=== PATIENT | female | born 1995 | race Hispanic/Latino ===

== ENCOUNTER 2019-08-22 16:00 | Emergency (ER) | payer OTHER ==
[2019-08-22 16:50] LABS: BASOPHILS % (AUTO) 0.6 % (0.0-5.0); EOSINOPHILS % (AUTO) 4.6 % (0.0-8.0); HEMATOCRIT 41.6 % (36-48); LYMPHOCYTES % (AUTO) 28.2 % (21.0-51.0); MEAN CORPUSCULAR HEMOGLOBIN 28.4 pg (27.0-33.0); MEAN CORPUSCULAR HGB CONC 33.4 g/dL (32.0-36.0); MEAN CORPUSCULAR VOLUME 85.1 fL (79-99); MONOCYTES % (AUTO) 6.6 % (3.0-13.0); NEUTROPHILS % (AUTO) 59.5 % (40.0-77.0); PLATELET COUNT (AUTO) 342 K/uL (130-400); RED BLOOD CELL COUNT(AUTO) 4.89 MIL/uL (4.00-5.50); RED CELL DISTRIBUTION WIDTH 12.3 % (11.0-15.5); WHITE BLOOD COUNT (AUTO) 10.9 K/uL (4.8-10.8)
[2019-08-22 16:56] LABS: CREATININE 0.8 mg/dL (0.5-1.5); POTASSIUM 3.7 mmol/L (3.5-5.1)
[2019-08-22 17:06] LABS: ALBUMIN 3.5 g/dL (3.5-5.0); BILIRUBIN,TOTAL 0.6 mg/dL (0.2-1.0); TOTAL PROTEIN, SERUM 7.5 g/dL (6.0-8.3)
[2019-08-22 17:16] LABS: APPEARANCE,URINE Clear (CLEAR); BILIRUBIN,URINE Negative (NEGATIVE); COLOR,URINE Dark Yellow (YELLOW); GLUCOSE, URINE (UA) Negative (NEGATIVE); KETONES,URINE Trace mg/dL (NEGATIVE); LEUKOCYTE ESTERASE ,URINE Trace (NEGATIVE); NITRATE,URINE Negative (NEGATIVE); OCCULT BLOOD,URINE Negative (NEGATIVE); PROTEIN,URINE Negative (NEGATIVE)
[2019-08-22 17:23] LABS: RBC,URINE None Seen /HPF (0-1)
[2019-08-22 17:24] LABS: BACTERIA,URINE Few /HPF (None Seen); MUCUS,URINE Many LPF (None Seen)
== END 2019-08-22 18:08 | disposition home or self-care (01) ==
LOC: EDH 16:00
DX: R19.7 Diarrhea, unspecified (principal); R10.9 Unspecified abdominal pain
CPT/HCPCS: 36415; 80053; 81001; 83690; 84702; 85025

== ENCOUNTER 2024-08-10 17:11 | Emergency (ER) | payer SELFPAY ==
[~2024-08-10] VITALS: Ht 157.5 cm; Wt 84.8 kg
[2024-08-10 17:21] VITALS: BP 122/83; PULSE 72; RESP 16; TEMP 97.8
--- NOTE | 2024-08-10 17:54 | ERN ---
ED Note History of Present Illness Stated Complaint: RIGHT ARM PAIN Chief Complaint: Arm Swelling/Redness Time Seen by MD: 17:41 Time Seen by Midlevel: 17:48 Dictation: Ms. Acevedo is a 29 year old female with no reported chronic she has who presented to the emergency department this evening for evaluation of arm pain. She states that approximately one week she woke up with pain to her right forearm and hand. The pain is persistent and now includes the entirety of the right upper extremity. 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 She denies trauma/injury. She denies history of similar pain. She denies recent illness, fever, chills, shortness of breath, cough, chest pain, palpitations, edema, abdominal pain, nausea, vomiting, diarrhea, dysuria, headache, or dizziness. She states that her mother gave her a dose of Tylenol two days ago and she has taken nothing since (because it did not work). She has not yet seen a a physician for this pain. 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 EYES: Patient denies any visual symptoms. EARS, NOSE, AND THROAT: No difficulties with hearing. No symptoms of rhinitis or sore throat. CARDIOVASCULAR: Patient denies chest pains, palpitations, orthopnea and paroxysmal nocturnal dyspnea. RESPIRATORY: No dyspnea on exertion, no wheezing or cough. GI: No nausea, vomiting, diarrhea, constipation, abdominal pain, hematochezia or melena. : No urinary hesitancy or dribbling. No nocturia or urinary frequency. No abnormal urethral discharge. MUSCULOSKELETAL: Reports pain to the entirety of right upper extremity. Reports burning/numb pain and a weakened coiled coil inspector on right. NEUROLOGIC: No chronic headaches, no seizures. Patient denies numbness, tingling or weakness. PSYCHIATRIC: Patient denies problems with mood disturbance. No problems with anxiety. ENDOCRINE: No excessive urination or excessive thirst. DERMATOLOGIC: Patient denies any rashes or skin changes. Initial Vital Sign VS Vital Signs Date Time Temp Pulse Resp B/P (MAP) Pulse Ox O2 Delivery O2 Flow Rate FiO2 08/10/24 17:21 97.9 72 16 122/83 96 Room Air Physical Exam Dictation Vital signs: Reviewed. Afebrile Constitutional: No acute distress. Non-toxic appearing. Head/Face: Normocephalic, atraumatic. Eyes: Periorbital areas with no swelling, redness, or edema. Lids and lashes are normal. Conjunctival injection is absent. Sclera anicteric. Pupils equal, round, reactive to light. ENT: Pinnas intact and no signs of trauma or erythema. Ear canals clear and no discharge. TMs no erythema. No nasal discharge or bleeding noted. Oropharynx with no exudate, redness, swelling, masses, exudates, or evidence of obstruction. Uvula midline. Mucous membranes moist. Neck: Trachea midline, no masses palpated, and no cervical lymphadenopathy. No swelling. Supple, full range of motion. Chest/Axilla: No tenderness, no crepitus, no paradoxical movement, no retractions. Cardiovascular: Regular rate, regular rhythm, no murmur, no gallops. Symmetric pulses. No peripheral edema. Respiratory: Respirations even and unlabored. Lung sounds clear; no wheezes, rales or rhonchi. Room air SpO2 96% Gastrointestinal: Inspection is normal. No distention is appreciated. Bowel sounds are normal. No mass or organomegaly . There is no tenderness. No rebound. No rigidity. No voluntary or involuntary guarding. No Corbin's sign. Neurological: Normal speech, gross motor function intact, gross sensory function intact. No focal weakness/Paresthesia. Musculoskeletal/Extremities: All extremities have full range of motion. Symmetric pulses. She has good color, warmth, movement and sensation to right fingers. Capillary refills less than 3 seconds. She has full range of motion to right shoulder, elbow, wrist, and fingers. Noted coiled coil inspector left greater than right. Integumentary: Intact. Skin is normal color, warm and dry. Cap refill less than 3 seconds. Results (Laboratory/Radiology) Laboratory/Radiology Laboratory Tests Test 08/10/24 17:57 Urine HCG, Qualitative NEGATIVE (NEGATIVE) ED Course ED Course Orders Procedure Category Date Status Time ,Urine Test LAB 08/10/24 Complete 17:53 Cyclobenzaprine Hcl PHA 08/10/24 Complete (Cyclobenzaprine Hcl 18:00 Ct Cervical Spine W/O CT 08/10/24 Logged Contrast 17:53 Ketorolac PHA 08/10/24 Complete Tromethamine 30mg/Ml 18:00 Current Medications Medications (Trade) Dose Ordered Sig/Arias Route PRN Reason Start Time Stop Time Status Last Admin Dose Admin Cyclobenzaprine HCl (Cyclobenzaprine HCl) 10 mg ONCE ONCE PO 08/10/24 18:00 08/10/24 18:01 DC Ketorolac Tromethamine (toRADol) 30 mg ONCE ONCE IM 08/10/24 18:00 08/10/24 18:01 DC Vital Signs Date Time Temp Pulse Resp B/P (MAP) Pulse Ox O2 Delivery O2 Flow Rate FiO2 08/10/24 17:21 97.9 72 16 122/83 96 Room Air advised by nursing staff that patient has eloped from lobby prior to imaging or medications Medical Decision Making MDM patient eloped DX & DISP Disposition: Other(Comment) (eloped) Departure Condition: Against Medical Advice Additional Instructions: advised by nursing staff that patient eloped from ED lobby prior to imaging or medications Referrals: SELF,REFERRAL (PCP) Time of Disposition: 20:09 MAKENZIE FELDMAN NP Aug 10, 2024 17:54
[2024-08-10] MEDS ORDERED: ketOROlac 30MG VIAL (30MG/ML) IM ONE (18:00)
[2024-08-10] MEDS ORDERED: CYCLOBENZAPRINE HCL 10 MG TABLET PO ONE (18:00)
--- NOTE | 2024-08-10 19:55 | NUR ---
CALLED, NO ANSWER BY MAKENZIE Michel
--- NOTE | 2024-08-10 20:00 | NUR ---
CALLED NO ANSWER
--- NOTE | 2024-08-10 20:05 | NUR ---
PT CALLED NO ANSWEER,NOT IN LOBBY, NOT IN MAIN ER.
== END 2024-08-10 20:06 | disposition left against medical advice (07) ==
LOC: EDH 17:11
DX: M79.601 Pain in right arm (principal)
CPT/HCPCS: 81025; 99283

== ENCOUNTER 2025-04-02 09:55 | Emergency (ER) | payer SELFPAY ==
[~2025-04-02] VITALS: Ht 154.9 cm; Wt 77.1 kg
[2025-04-02 10:14] LABS: IMMATURE GRANULOCYTE ABSOLUTE 0.04 K/uL (0-1); NUCLEATED RED BLOOD CELLS 0.0 % (0.0-0.19); PLATELET COUNT (AUTO) 367 K/uL (130-400); RED BLOOD CELL COUNT(AUTO) 4.99 MIL/uL (4.00-5.50); RED CELL DISTRIBUTION WIDTH 12.1 % (11.0-15.5); WHITE BLOOD COUNT (AUTO) 9.2 K/uL (4.8-10.8)
--- NOTE | 2025-04-02 10:21 | ERN ---
General Chief Complaint: Shoulder Injury/Pain Stated Complaint: RT SHOULDER PAIN/ RADIATES TO UPPER BACK Time Seen by MD: 09:57 Source: patient History of Present Illness Initial Comments Patient is a 29-year-old female coming in with multiple complaints. Per patient she has been having right shoulder pain right trapezius muscle pain radiating to the right side of her chest. She also states that she has been feeling pressure in the epigastric and bilateral chest regions. Allergies: Coded Allergies: No Known Drug Allergies (Unverified Allergy, Unknown, 08/23/19) Past Medical History Past Medical History: No Pertinent History Past Surgical History: None Social History Social History: Negative, Lives with family ROS Dictation CONSTITUTIONAL: No chills, no fever, no weakness, no diaphoresis, no malaise. HEAD/FACE: No signs of trauma. EENT: No eye pain, no blurred vision, no tearing, no double vision, no ear pain, no ear discharge, no nose pain, no nasal congestion, no throat pain, no throat swelling, no mouth pain. RESPIRATORY: No cough, no orthopnea, no SOB, no stridor, no wheezing. CARDIOVASCULAR: chest pain, no edema, no palpitations, no syncope. GASTROINTESTINAL/ABDOMINAL: No abdominal pain, no constipation, no diarrhea, no nausea, no vomiting. GENITOURINARY: No abnormal discharge, no dysuria, no frequent urination, no hematuria. No complaints of pain in the genitals. MUSCULOSKELETAL: No back pain, no gout, no joint pain, no joint swelling, no muscle pain, no muscle stiffness, no neck pain. INTEGUMENTARY: No change in color, no change in hair/nails, no dryness, no lesion, no lumps, no rash. NEUROLOGICAL/PSYCH: No anxiety, not depressed, no emotional problem, no headache, no numbness, no pre-existing deficit, no history of seizures, no tremors, no weakness. HEMATOLOGIC/LYMPHATIC: Not anemic, no history of blood clots, no apparent bleeding, no bruising, glands not swollen. All Systems Negative, Except as Noted. Physical Exam Physical Exam Dictation VITAL SIGNS: Reviewed. GENERAL APPEARANCE: Alert, oriented x3, no acute distress, obese. HEAD AND FACE: Non-traumatic. EYES: PERRL, pink conjunctivas, eyelid no trauma, anterior chamber clear. EARS: Pinnas intact and no signs of trauma or erythema. Ear canals clear and no discharge. TMs no erythema. NOSE: No discharge, no bleeding. OROPHARYNX: Mouth normal, teeth no caries, tongue pink. Pharynx clear, no erythema. Tonsils no exudates, no abscesses noted. Mucous membrane moist. NECK: Supple, non-tender, no thyromegaly, no masses, no JVD, no bruits. BREAST: Deferred. CHEST: tenderness, no crepitus, no paradoxical movement, no retractions. Right chest region tenderness on palpation LUNGS: Clear, well-ventilated, symmetric, no rales, no wheezing, no rhonchi, no stridor, good breath sounds bilaterally. HEART: Regular rate, regular rhythm, no murmur, no gallops. VASCULAR: No peripheral edema. ABDOMEN: Soft, positive bowel sounds, nondistended, no guarding, nontender, no rebound, no masses no hepatomegaly, no splenomegaly, no Corbin's sign, no hernias. RECTAL: Deferred. GENITAL: Deferred. NEUROLOGICAL: Normal speech, gross motor function intact, gross sensory function intact. MUSCULOSKELETAL: Neck nontender, full range of motion, back nontender, full range of motion. EXTREMITIES: Nontender, full range of motion. Right trapezius muscle tenderness SKIN: Color pink, dry, no turgor, no rash, no lacerations, no abrasions, no contusions. LYMPHATICS: Deferred. Results Laboratory and Microbiology Lab and Micro Result Laboratory Tests Test 04/02/25 10:04 04/02/25 10:08 Urine Color LIGHT-YELLOW (YELLOW) Urine Appearance CLEAR (CLEAR) Urine pH 6.0 (5.0-8.0) Urine Specific [place] 1.029 (1.001-1.031) Urine Protein NEGATIVE mg/dL (NEGATIVE) Urine Glucose (UA) NEGATIVE mg/dL (NEGATIVE) Urine Ketones NEGATIVE mg/dL (NEGATIVE) Urine Occult Blood NEGATIVE (NEGATIVE) Urine Nitrate NEGATIVE (NEGATIVE) Urine Bilirubin NEGATIVE mg/dL (NEGATIVE) Urine Urobilinogen 0.2 mg/dL (0.2-1.0) Urine Leukocyte Esterase NEGATIVE [place]/uL Urine HCG, Qualitative NEGATIVE (NEGATIVE) Urine Opiates Screen NEGATIVE (NEGATIVE) Urine Barbiturates Screen NEGATIVE (NEGATIVE) Urine Phencyclidine Screen NEGATIVE (NEGATIVE) Urine Amphetamines Screen NEGATIVE (NEGATIVE) Urine Benzodiazepines Screen NEGATIVE (NEGATIVE) Urine Cocaine Screen NEGATIVE (NEGATIVE) Urine Marijuana (THC) Screen NEGATIVE (NEGATIVE) White Blood Count 9.2 K/uL (4.8-10.8) Red Blood Count 4.99 MIL/uL (4.00-5.50) Hemoglobin 14.5 g/dL (12.0-16.0) Hematocrit 43.3 % (36-48) Mean Corpuscular Volume 86.8 fL (79-99) Mean Corpuscular Hemoglobin 29.1 pg (27.0-33.0) Mean Corpuscular Hemoglobin Concent 33.5 g/dL (32.0-36.0) Red Cell Distribution Width 12.1 % (11.0-15.5) Platelet Count 367 K/uL (130-400) Mean Platelet Volume 10.5 fL (7.5-10.5) Immature Granulocyte % (Auto) 0.4 % (0-1) Neutrophils (%) (Auto) 59.0 % (40.0-77.0) Lymphocytes (%) (Auto) 25.5 % (21.0-51.0) Monocytes (%) (Auto) 6.4 % (3.0-13.0) Eosinophils (%) (Auto) 7.7 % (0.0-8.0) Basophils (%) (Auto) 1.0 % (0.0-5.0) Neutrophils # (Auto) 5.4 K/uL (1.8-7.7) Lymphocytes # (Auto) 2.3 K/uL (1.0-4.8) Monocytes # (Auto) 0.6 K/uL (0.1-1.0) Eosinophils # (Auto) 0.71 K/uL (0.00-0.70) H Basophils # (Auto) 0.09 K/uL (0.00-0.20) Absolute Immature Granulocyte (auto 0.04 K/uL (0-1) Nucleated Red Blood Cells 0.0 % (0.0-0.19) Sodium Level 136 mmol/L (136-145) Potassium Level 4.1 mmol/L (3.5-5.1) Chloride Level 101 mmol/L (101-111) Carbon Dioxide Level 28 mmol/L (21-32) Blood Urea Nitrogen 17 mg/dL (7-18) Creatinine 0.9 mg/dL (0.5-1.0) Glomerular Filtration Rate Calc 89 mL/min (>90) Random Glucose 90 mg/dL (70-105) Total Calcium 8.5 mg/dL (8.5-10.1) Total Bilirubin 0.5 mg/dL (0.2-1.0) Aspartate Amino Transf (AST/SGOT) 16 U/L (10-37) Alanine Aminotransferase (ALT/SGPT) 29 U/L (12-78) Alkaline Phosphatase 91 U/L (50-136) Total Creatine Kinase 123 U/L (21-232) Troponin I High Sensitivity 4 ng/L (4-50) Total Protein 7.2 g/dL (6.0-8.3) Albumin 3.4 g/dL (3.5-5.0) L Lipase 56 U/L (16-77) Labs Reviewed?: Yes EKG/XRAY/US/CT/MRI EKG Comment 04/02/2025 time 10:10 a.m. Ventricular rate 59 Sinus arrhythmias [place] [address] wave elevation or depression MDM MDM: Differential diagnosis: GERD, NSTEMI, STEMI, Rationale: Tests considered and ordered secondary to shared decision making include: Previous outside records reviewed: Old ER visits. Risk of complication and/or morbidity or mortality of patient management: None Medications-Per medication reconciliation Need for hospitalization: Patient does not meet criteria for hospitalization. Need for emergency major/minor surgery: No Patient is a 29-year-old female coming in complaining of chest pressure muscle strain and abdominal discomfort. Laboratory workup within normal limits. Patient received the IV Protonix states her symptoms have improved. Patient will be discharged in stable condition with a diagnosis of GERD esophagitis. Also advised him appropriate follow up with PCP for ongoing evaluation. ED Course Orders Procedure Category Date Status Time Cbc With Differential LAB 04/02/25 Complete 09:59 Comprehensive LAB 04/02/25 Complete Metabolic Panel 09:59 Troponin I High LAB 04/02/25 Complete Sensitivity 09:59 ,Urine Test LAB 04/02/25 Complete 09:59 Urinalysis Profile LAB 04/02/25 Complete 09:59 12 Lead Ekg Tracing- EKG 04/02/25 Complete Technical 09:59 Ondansetron 4mg Inj PHA 04/02/25 Complete (Zofran 4mg Inj) 10:00 Pantoprazole 40mg Inj PHA 04/02/25 Complete (Protonix 40mg Inj 10:00 Creatine Kinase, Total LAB 04/02/25 Complete 09:59 Lipase LAB 04/02/25 Complete 09:59 Drug Screen Urine LAB 04/02/25 Complete 10:24 Current Medications Medications (Trade) Dose Ordered Sig/Arias Route PRN Reason Start Time Stop Time Status Last Admin Dose Admin Ondansetron HCl (zoFRAN 4MG INJ) 4 mg ONCE ONCE IVP 04/02/25 10:00 04/02/25 10:01 DC Pantoprazole Sodium (PROTonix 40MG INJ) 40 mg ONCE ONCE IVP 04/02/25 10:00 04/02/25 10:01 DC Vital Signs Date Time Temp Pulse Resp B/P (MAP) Pulse Ox O2 Delivery O2 Flow Rate FiO2 04/02/25 11:04 98.6 77 20 133/58 99 0 DX & DISP Disposition: Discharge Departure Impression: Primary Impression: GERD with esophagitis Condition: Stable Scripts Pantoprazole Sodium (Protonix) 40 Mg Ectab 1 TAB PO DAILY for 30 Days, #30 TAB 0 Refills Prov: TEJ LUZ MD 04/02/25 Additional Instructions: You have been reviewed in the emergency department at [facility] after presenting with chest pain. After considering your history, your risk factors, your EKG and your blood test troponins, have been found to be at very low risk less than (1 in 100) of having a major adverse cardiac event (like heart attack) in the near future. In the " low risk" group, the risks of doing further tests and treatment as the inpatient outweighs the benefits. In many patients in the low risk group for the test of any sort or unnecessary, however he should discuss this further with his general practitioner who will understand the medical and personal backgrounds better. Because we have never declared you" no risk" we would suggest. 1 returning for medical review if you have further episodes of chest pain/arm pain or other concerning symptoms like dizziness, collapse, palpitations or shortness of breath. 2. Following up with your local doctor who will consider the need for further testing and will also ensure that any modifiable risk factors you may have for heart disease are optimally managed. Patient will be discharged in stable condition at the moment discharge patient states , no chest pain Referrals: SELF,REFERRAL (PCP) JADE BARRIOS MD Time of Disposition: 11:12 TEJ LUZ MD Apr 02, 2025 10:21
[2025-04-02 10:22] LABS: CREATININE 0.9 mg/dL (0.5-1.0); GLOMERULAR FILTR. RATE CALC 89.0 mL/min (>90); GLUCOSE,RANDOM 90.0 mg/dL (70-105); SODIUM SERUM 136.0 mmol/L (136-145); UREA NITROGEN, BLOOD 17.0 mg/dL (7-18)
[2025-04-02 10:24] LABS: APPEARANCE,URINE CLEAR (CLEAR); GLUCOSE, URINE (UA) NEGATIVE (NEGATIVE); LEUKOCYTE ESTERASE ,URINE NEGATIVE Leu/uL (NEGATIVE); NITRATE,URINE NEGATIVE (NEGATIVE); OCCULT BLOOD,URINE NEGATIVE (NEGATIVE)
[2025-04-02 10:26] LABS: ASPARTATE AMINOTRANSFERASE 16.0 U/L (10-37); CREATINE KINASE, TOTAL 123.0 U/L (21-232); TOTAL PROTEIN, SERUM 7.2 g/dL (6.0-8.3)
[2025-04-02 10:32] LABS: ADD UA MICROSCOPIC NO
[2025-04-02 10:46] LABS: HCG,QUALITATIVE URINE NEGATIVE (NEGATIVE)
--- NOTE | 2025-04-02 11:05 | EKG ---
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
[2025-04-02 11:08] LABS: AMPHET/METH SCREEN,URINE NEGATIVE (NEGATIVE); BARBITURATE SCREEN, URINE NEGATIVE (NEGATIVE); CANNABINOID SCREEN,URINE NEGATIVE (NEGATIVE); COCAINE SCREEN,URINE NEGATIVE (NEGATIVE)
[2025-04-02] MEDS ORDERED: PANT40TA55 PO (11:13)
[2025-04-02 11:52] VITALS: BP 110/75; PULSE 80; RESP 18; TEMP 97.5; O2SAT 99
== END 2025-04-02 11:57 | disposition home or self-care (01) ==
LOC: EDH 09:55
DX: K21.00 Gastro-esophageal reflux disease with esophagitis, without bleeding (principal); M25.511 Pain in right shoulder
CPT/HCPCS: 99284; 96374; 96375; 82550; 84484; 80053; 80305; 83690; 85025; 81003; 81025; 36415; 93005; J2405; J2470

== ENCOUNTER 2025-05-12 01:42 | Emergency (ER) | payer SELFPAY ==
[~2025-05-12] VITALS: Ht 157.5 cm; Wt 83.9 kg
[~2025-05-12 01:42] MED LIST: PANT40TA55 PO
[2025-05-12 02:05] VITALS: BP 131/97; PULSE 88; RESP 18; TEMP 98.8; O2SAT 99
[2025-05-12 02:07] LABS: IMMATURE GRANULOCYTE ABSOLUTE 0.06 K/uL (0-1); NUCLEATED RED BLOOD CELLS 0.0 % (0.0-0.19); PLATELET COUNT (AUTO) 387 K/uL (130-400); RED BLOOD CELL COUNT(AUTO) 5.03 MIL/uL (4.00-5.50); RED CELL DISTRIBUTION WIDTH 12.7 % (11.0-15.5); WHITE BLOOD COUNT (AUTO) 12.6 K/uL (4.8-10.8)
[2025-05-12 02:16] LABS: CREATININE 0.9 mg/dL (0.5-1.0); GLOMERULAR FILTR. RATE CALC 89.0 mL/min (>90); GLUCOSE,RANDOM 111.0 mg/dL (70-105); SODIUM SERUM 141.0 mmol/L (136-145); UREA NITROGEN, BLOOD 19.0 mg/dL (7-18)
[2025-05-12] MEDS: LACTATED RINGERS 1000ML 1,000 ML IV ONE (02:17)
[2025-05-12 02:21] LABS: ASPARTATE AMINOTRANSFERASE 11.0 U/L (10-37); TOTAL PROTEIN, SERUM 7.5 g/dL (6.0-8.3)
--- NOTE | 2025-05-12 02:49 | ERN ---
General Chief Complaint: Chest Pain Stated Complaint: C/O CP TO RT RIB AREA RADIATING TO BACK W/ABD PAIN Time Seen by MD: 01:46 History of Present Illness Initial Comments 30F, otherwise healthy, presents for RUQ and R flank pain beginning earlier tonight. Patient described moderate to severe pain, associated with nausea, bloating. No urinary symptoms, no fevers. No diarrhea, no bleeding. Patient has had similar pain a few times. Allergies: Coded Allergies: No Known Drug Allergies (Unverified Allergy, Unknown, 08/23/19) Home Meds Active Scripts Pantoprazole Sodium (Protonix) 40 Mg Ectab, 1 TAB PO DAILY for 30 Days, #30 TAB 0 Refills Prov:TEJ LUZ MD 04/02/25 Past Medical History Past Medical History: No Pertinent History Past Surgical History: None Social History Social History: Negative, Lives with family Female( History) LMP: Apr 29, 2025 ROS Dictation CONSTITUTIONAL: No chills, no fever, no weakness, no diaphoresis, no malaise. HEAD/FACE: No signs of trauma. EENT: No eye pain, no blurred vision, no tearing, no double vision, no ear pain, no ear discharge, no nose pain, no nasal congestion, no throat pain, no throat swelling, no mouth pain. RESPIRATORY: No cough, no orthopnea, no SOB, no stridor, no wheezing. CARDIOVASCULAR: No chest pain, no edema, no palpitations, no syncope. GASTROINTESTINAL/ABDOMINAL: Right upper quadrant pain nausea GENITOURINARY: No abnormal discharge, no dysuria, no frequent urination, no hematuria. No complaints of pain in the genitals. MUSCULOSKELETAL: No back pain, no gout, no joint pain, no joint swelling, no muscle pain, no muscle stiffness, no neck pain. INTEGUMENTARY: No change in color, no change in hair/nails, no dryness, no lesion, no lumps, no rash. NEUROLOGICAL/PSYCH: No anxiety, not depressed, no emotional problem, no headache, no numbness, no pre-existing deficit, no history of seizures, no tremors, no weakness. HEMATOLOGIC/LYMPHATIC: Not anemic, no history of blood clots, no apparent blee ding, no bruising, glands not swollen. All Systems Negative, Except as Noted. Physical Exam Physical Exam Dictation VITAL SIGNS: Reviewed. GENERAL APPEARANCE: Alert, oriented x3, moderate distress due to pain HEAD AND FACE: Non-traumatic. EYES: PERRL, pink conjunctivas, eyelid no trauma, anterior chamber clear. EARS: Pinnas intact and no signs of trauma or erythema. Ear canals clear and no discharge. TMs no erythema. NOSE: No discharge, no bleeding. OROPHARYNX: Mouth normal, teeth no caries, tongue pink. Pharynx clear, no erythema. Tonsils no exudates, no abscesses noted. Mucous membrane moist. NECK: Supple, non-tender, no thyromegaly, no masses, no JVD, no bruits. BREAST: Deferred. CHEST: No tenderness, no crepitus, no paradoxical movement, no retractions. LUNGS: Clear, well-ventilated, symmetric, no rales, no wheezing, no rhonchi, no stridor, good breath sounds bilaterally. HEART: Regular rate, regular rhythm, no murmur, no gallops. VASCULAR: No peripheral edema. ABDOMEN: Quadrant tenderness RECTAL: Deferred. GENITAL: Deferred. NEUROLOGICAL: Normal speech, gross motor function intact, gross sensory function intact. MUSCULOSKELETAL: Neck nontender, full range of motion, back nontender, full range of motion. EXTREMITIES: Nontender, full range of motion. SKIN: Color pink, dry, no turgor, no rash, no lacerations, no abrasions, no contusions. LYMPHATICS: Deferred. Results Laboratory and Microbiology Lab and Micro Result Laboratory Tests Test 05/12/25 01:59 White Blood Count 12.6 K/uL (4.8-10.8) H Red Blood Count 5.03 MIL/uL (4.00-5.50) Hemoglobin 14.7 g/dL (12.0-16.0) Hematocrit 43.3 % (36-48) Mean Corpuscular Volume 86.1 fL (79-99) Mean Corpuscular Hemoglobin 29.2 pg (27.0-33.0) Mean Corpuscular Hemoglobin Concent 33.9 g/dL (32.0-36.0) Red Cell Distribution Width 12.7 % (11.0-15.5) Platelet Count 387 K/uL (130-400) Mean Platelet Volume 10.9 fL (7.5-10.5) H Immature Granulocyte % (Auto) 0.5 % (0-1) Neutrophils (%) (Auto) 58.1 % (40.0-77.0) Lymphocytes (%) (Auto) 30.6 % (21.0-51.0) Monocytes (%) (Auto) 6.2 % (3.0-13.0) Eosinophils (%) (Auto) 4.1 % (0.0-8.0) Basophils (%) (Auto) 0.5 % (0.0-5.0) Neutrophils # (Auto) 7.3 K/uL (1.8-7.7) Lymphocytes # (Auto) 3.8 K/uL (1.0-4.8) Monocytes # (Auto) 0.8 K/uL (0.1-1.0) Eosinophils # (Auto) 0.51 K/uL (0.00-0.70) Basophils # (Auto) 0.06 K/uL (0.00-0.20) Absolute Immature Granulocyte (auto 0.06 K/uL (0-1) Nucleated Red Blood Cells 0.0 % (0.0-0.19) Sodium Level 141 mmol/L (136-145) Potassium Level 4.0 mmol/L (3.5-5.1) Chloride Level 103 mmol/L (101-111) Carbon Dioxide Level 28 mmol/L (21-32) Blood Urea Nitrogen 19 mg/dL (7-18) H Creatinine 0.9 mg/dL (0.5-1.0) Glomerular Filtration Rate Calc 89 mL/min (>90) Random Glucose 111 mg/dL (70-105) H Total Calcium 8.7 mg/dL (8.5-10.1) Total Bilirubin 0.5 mg/dL (0.2-1.0) Direct Bilirubin 0.1 mg/dL (0.0-0.3) Aspartate Amino Transf (AST/SGOT) 11 U/L (10-37) Alanine Aminotransferase (ALT/SGPT) 21 U/L (12-78) Alkaline Phosphatase 88 U/L (50-136) Total Protein 7.5 g/dL (6.0-8.3) Albumin 3.8 g/dL (3.5-5.0) Lipase 56 U/L (16-77) Serum Test, Qualitative NEGATIVE (NEGATIVE) MDM CC: Right-sided abdominal pain right flank pain Historian: Patient Comorbidities: Obesity Limitations by social determinants of health: None Differential diagnosis: Biliary disease, liver disease, other Vital signs are stable Lab work ( CBC, metabolic panel, liver enzymes, lipase, serum hCG ) unremarkable. The ultrasound shows a gallstone, no all thickening, CBC normal, no pericholecystic fluid. Symptoms most consistent with symptomatic cholelithiasis. No signs of SIRS or sepsis. No signs of cholecystitis. No urinary symptoms. No signs of surgical pathology. Treatment in ED: 1 L lactated Ringer's, IV Reglan, IV morphine, IV Toradol. Multiple re-evaluations due to the IV pain control. Final re-evaluation: Patient's pain is controlled, p.o. tolerant, stable vital signs, nontoxic. Symptoms most consistent with biliary colic. We will DC with Symptomatic relief, dietary modification, and going to surgical referral. ED Course Orders Procedure Category Date Status Time Cbc With Differential LAB 05/12/25 Complete 01:46 Urinalysis Profile LAB 05/12/25 Logged 01:46 Lipase LAB 05/12/25 Complete 01:46 Basic Metabolic Panel LAB 05/12/25 Complete 01:46 Hepatic Function Panel LAB 05/12/25 Complete 01:46 Ketorolac PHA 05/12/25 Complete Tromethamine 15mg/Ml 02:30 Morphine 4mg Syg PHA 05/12/25 Complete (Morphine 4mg Syg) 02:30 Lactated Ringers PHA 05/12/25 Complete 1000ml (Lactated 02:30 Metoclopramide 10 PHA 05/12/25 Complete Mg/2 Ml Vial (Reglan 1 02:30 Us Abdominal Ruq\Ltd US 05/12/25 Taken 02:27 Testing, LAB 05/12/25 Complete Serum Hcg 02:29 Current Medications Medications (Trade) Dose Ordered Sig/Arias Route PRN Reason Start Time Stop Time Status Last Admin Dose Admin Ketorolac Tromethamine (toRADol) 15 mg ONCE ONCE IV 05/12/25 02:30 05/12/25 02:31 DC 05/12/25 02:17 Lactated Ringer's 1,000 ml @ 0 mls/hr ONCE ONCE IV 05/12/25 02:30 05/12/25 02:31 DC 05/12/25 02:17 Metoclopramide HCl (regLAN 10MG IV) 10 mg ONCE ONCE IVP 05/12/25 02:30 05/12/25 02:31 DC 05/12/25 02:17 Morphine Sulfate (morPHINE 4MG SYG) 4 mg ONCE ONCE IVP 05/12/25 02:30 05/12/25 02:31 DC 05/12/25 02:17 Vital Signs Date Time Temp Pulse Resp B/P (MAP) Pulse Ox O2 Delivery O2 Flow Rate FiO2 05/12/25 02:05 98.8 88 18 131/97 99 Room Air* 0 21 05/12/25 01:44 98.4 61 20 126/89 98 Room Air DX & DISP Disposition: Discharge Departure Impression: Primary Impression: Biliary colic Additional Impression: Gallstone Condition: Stable Scripts Ondansetron (Ondansetron Odt) 4 Mg Tab.rapdis 1 TAB PO Q6HPRN PRN for nausea/vomiting for 3 Days, #10 TAB 0 Refills Prov: RACHEL VELÁSQUEZ DO 05/12/25 Dicyclomine HCl (Bentyl) 20 Mg Tab 1 TAB PO TID for irritable bowel symptoms for 5 Days, #20 TAB 0 Refills Prov: RACHEL VELÁSQUEZ DO 05/12/25 Ibuprofen (Ibuprofen 800 mg Tab) 800 Mg Tab 800 MG PO Q6H PRN for PAIN, #30 TAB Prov: RACHEL VELÁSQUEZ DO 05/12/25 Acetaminophen with Codeine (Acetaminophen-Cod #3 Tablet) 300 Mg-30 Mg Tablet 1 TAB PO TIDP PRN for pain for 5 Days, #20 TAB 0 Refills Prov: RACHEL VELÁSQUEZ DO 05/12/25 Additional Instructions: You have gallstones. This is causing your abdominal pain. I recommend dietary modifications. Follow up with a low-fat diet to help reduce gallbladder attacks. Avoid fried, greasy, and fatty foods. Eat smaller, more frequent meals rather than large meals. Increase fruits, vegetables, and whole grains. If you do get a gallbladder attack, I have prescribed three pain medications: Tylenol with codeine, Motrin, and Bentyl. You can take all of these medications together for severe attacks. I have also prescribed ondansetron dissolvable tabs to use as needed for nausea and vomiting. I have given you a referral to a surgeon, Dr. Hoffman. Please make an appointment for evaluation. Please return to the emergency department if you develop any high fevers, persistent abdominal pain despite the pain medications, persistent vomiting, yellowing of skin, or any other concerning symptom. Referrals: SELF,REFERRAL (PCP) ETHANJULY RACHEL JANSEN MD, DO May 12, 2025 02:48
--- NOTE | 2025-05-12 03:48 | HMCIMG ---
EXAM: US Abdomen, Right Upper Quadrant. CLINICAL HISTORY: RUQ pain TECHNIQUE: Right upper quadrant sonography performed with image documentation. COMPARISON: None provided. FINDINGS: The liver measures 15.7 cm craniocaudally. Increased echogenicity of the liver parenchyma, reflecting fatty liver. There are mobile stones around the gallbladder fundus. The gallbladder wall thickness measures up to 3 mm. Mildly prominent CBD measures up to 6 mm in diameter. The pancreas is partially visualized due to the overlying bowel gases. The right kidney measures 9.1 x 4.5 x 3.7 cm. IMPRESSION: Cholelithiasis without acute cholecystitis. If the clinical concern persists, recommend a HIDA scan for further evaluation. Mild fatty liver. /David
[2025-05-12] MEDS ORDERED: DICY20TA2 PO (03:49)
[2025-05-12] MEDS ORDERED: IBUP-2077 PO (03:49)
[2025-05-12] MEDS ORDERED: ONDA-243 PO (03:49)
[2025-05-12] MEDS ORDERED: ACET-2079 PO (03:49)
--- NOTE | 2025-05-12 09:16 | EKG ---
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
== END 2025-05-12 05:32 | disposition home or self-care (01) ==
LOC: EDH 01:42
DX: K80.70 Calculus of gallbladder and bile duct without cholecystitis without obstruction (principal); E66.9 Obesity, unspecified; Z79.899 Other long term (current) drug therapy
CPT/HCPCS: 99285; 96374; 76705; 96375; 96361; 80076; 80048; 84703; 83690; 85025; 36415; 96376; 93005; J1885; J7120; J2270 ×2; J2765